=== PATIENT | female | born 1980 | race Caucasian/White ===

== ENCOUNTER 2023-04-21 09:21 | Emergency (ER) | payer MEDICAID, SELFPAY ==
[2023-04-21 09:26] VITALS: BP 119/71; PULSE 65; RESP 16; TEMP 36.6; O2SAT 96; BMI 22.6
--- NOTE | 2023-04-21 09:56 | ED_ITS ---
HPI - General Adult General Chief complaint: Ear/Nose/Throat Problem Stated complaint: Inner ear issue Time Seen by Provider: 04/21/23 09:41 History of Present Illness HPI narrative: 42-year-old female with right ear pain drainage some foul-smelling drainage. She has been having her ears cleaned about 3 weeks ago, has a history of ear problems. She has no severe pain but has been discomfort and itching. She has had ear tubes in the past. Related Data Home Medications Medication Instructions Recorded Confirmed fluoxetine 40 mg capsule 40 mg PO DAILY 03/09/23 04/21/23 Previous Rx's Medication Instructions Recorded ciprofloxacin HCl 0.3 % eye drops See Rx Instructions ophthalmic 03/09/23 (eye) .COMPLEX #10 mL ciprofloxacin 0.3 %-dexamethasone 4 drp Otic (ear-left) Q4H 7 days 04/21/23 0.1 % ear drops,suspension #7.5 mL Allergies Allergy/AdvReac Type Severity Reaction Status Date / Time No Known Drug Allergies Allergy Verified 03/09/23 09:47 Review of Systems Status of ROS: Reports: 6 or more systems reviewed and unremarkable except as noted in History and below [facility] Social History Smoking Status: Unknown if ever smoked Exam Narrative: Exam Narrative: Objective: Patient's vital signs look unremarkable She has got right otitis externa some swelling of the external canal, but no complete occlusion does not need an ear wick is there is plenty a passage space. Does not have appear to have otitis media. Does have some skin changes in her ear canal consistent with otitis externa. Const: Vital Signs, click to edit/add: Vital Signs - 24 hr 04/21/23 09:26 Temperature 97.8 F Pulse Rate [Pulse Oximeter] 65 Respiratory Rate 16 Blood Pressure [Ri t Upper Arm] 119/71 Pulse Oximetry 96 Oxygen Delivery Me thod Room Air Course Vital Signs Vital signs: Initial Vital Signs Temperature 97.8 F 04/21/23 09:26 Temperature Source Temporal Artery Scan 04/21/23 09:26 Pulse Rate 65 04/21/23 09:26 Respiratory Rate 16 04/21/23 09:26 Blood Pressure 119/71 04/21/23 09:26 Blood Pressure Mean 87 04/21/23 09:26 Blood Pressure Position Sitting 04/21/23 09:26 Pulse Oximetry 96 04/21/23 09:26 Oxygen Delivery Method Room Air 04/21/23 09:26 Vital Signs Temperature 97.8 F 04/21/23 09:26 Pulse Rate 65 04/21/23 09:26 Respiratory Rate 16 04/21/23 09:26 Blood Pressure 119/71 04/21/23 09:26 Pulse Oximetry 96 04/21/23 09:26 Oxygen Delivery Method Room Air 04/21/23 09:26 Temperature 97.8 F 04/21/23 09:26 Pulse Rate 65 04/21/23 09:26 Respiratory Rate 16 04/21/23 09:26 Blood Pressure 119/71 04/21/23 09:26 Pulse Oximetry 96 04/21/23 09:26 Oxygen Delivery Method Room Air 04/21/23 09:26 Medical Decision Making MDM Narrative Medical decision making narrative: [age] year white female with right otitis externa. Would recommend Ciprodex drops 6 drops 6 times a day for 2 days then 6 drops t.i.d. until symptom free for 2-3 days. I recommend follow-up with primary care to make sure this is clear in 1 week, would recommend ENT consult with Dr. Amezcua in if needed. Return sooner problems or concerns. Discharge Plan Discharge Clinical Impression: Otitis externa Patient Disposition: Home, Self-Care Condition: Stable Additional Instructions: Ear drops 6 times a day 6 drops to the right ear x2 days, then 3 drops 3 times a day until symptom-free for 2-3 days. Recommend follow-up with primary care at a weeks time to make sure this is clearing, would also recommend follow-up with ENT Dr. Amezcua in if problems or concerns. Activity Level: No Restrictions Discharge Diet: Regular Prescriptions: New ciprofloxacin-dexamethasone 0.3-0.1 % drops,suspension 4 drp Otic (ear-left) Q4H 7 Days Qty: 7.5 0RF Rx Instructions: 6 drops rt ear 6 x day x 2 days, then 6 drops tid until symptom free for 3 days. No Action fluoxetine 40 mg capsule 40 mg PO DAILY ciprofloxacin HCl 0.3 % drops See Rx Instructions ophthalmic (eye) .COMPLEX Qty: 10 0RF Rx Instructions: put 1-2 drps in affected eye(s) every 2hr up to 8 times/day x2days; then 4 times/day x5days ophthalmic (eye) Follow Up/Referrals: Provider,Not a Local [Primary Care Provider] - Stand Alone Forms: Into The Gloss Info Instructions
== END 2023-04-21 10:06 | disposition home or self-care (01) ==
LOC: ED 10:02
PROVIDERS: Emergency Provider Family Medicine
DX: H60.91 Unspecified otitis externa, right ear (principal)
CPT/HCPCS: 99283

== ENCOUNTER 2025-02-21 08:58 | Emergency (ER) | payer BC, SELFPAY ==
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
--- OUTSIDE RECORDS SUMMARY | 2025-02-21 09:01 | XMS_ITS | Clinical Summary ---
Author Organization [facility] Address [address] [place] [id number] Care Team Providers Care Scalping Machine Operator Name Role Phone [facility] Primary Care Provider Unavailabl e Allergies No known active allergies Medications MedicationSigDispense QuantityRefillsLast FilledStart DateEnd DateStatus FLUoxetine (PROZAC) 40 mg capsule 12/05/2017Active vitamin-folic acid 1 mg ( RX) tablet/capsule Take 1 tablet by mouth once daily.Active FLUoxetine (PROZAC) 10 mg capsule Indications: depressionTake 1 tab daily for 4 days, then increase to 2 tabs daily for 4 days, then 3 tabs daily. 60 capsule 09/07/2018Active Active Problems No known active problems Family History Medical HistoryRelationNameCommentsGeneticOther cancer~thyroid~stroke~diabetes-AuntRelationNameStatusCommentsOther Social History Tobacco UseTypesPacks/DayYears UsedDateSmoking Tobacco: NeverSmokeless Tobacco: NeverCommentsNoSex and Gender InformationValueDate RecordedSex Assigned at BirthNot on fileLegal NroOmwjmr72/14/2013 5:26 AM CSTGender IdentityNot on fileSexual OrientationNot on file Last Filed Vital Signs Vital SignReadingTime TakenCommentsBlood Kwtdklra798/7407 11:01 AM CDT Genjc800709/07/2018 11:01 AM TQEHrgxwrlvmgc55 ??C (100.4 ??F)09/07/2018 11:01 AM CDTRespiratory Rate--Oxygen Slotcqynsm10%09/07/2018 11:01 AM CDTInhaled Oxygen Concentration--Weight--Height--Body Mass Index-- Plan of Treatment Health MaintenanceDue DateLast DoneCommentsTetanus qapayoc3308/12/1992Depression screening for age 12+1993HIV for age 15-65008/12/1996BMI (ht and wt on same day) for age 18+08/13/1999Hepatitis C screening for age 18-7908/13/1999Hepatitis B series for 19+ (1 of 3 - 19+ 3-dose series)2000Pap test for age 21-65 2002HPV series for age 9-45 (1 - 3-dose SCDM series)2008COVID-19 vaccine series ( - 2024- season)2024Influenza Vaccine (#1)2024 Pneumococcal series for age 6-49Aged OutNo longer eligible based on patient's age to complete this topic Insurance * Guarantor: Joyce Campa TypeRelation to PatientDate of PhoneBilling AddressPersonal/OxlmpsVnms82/18/1981 [address] [place] [address] Care Teams Team MemberRelationshipSpecialtyStart DateEnd Date [facility] PCP - Damieeq74/30/06
[2025-02-21 09:24] VITALS: BP 139/84; PULSE 85; RESP 18; TEMP 37; O2SAT 98; BMI 21.3
--- NOTE | 2025-02-21 09:40 | ED.GENADULT ---
HPI - General Adult General Date Seen: 02/21/25 Chief complaint: Sore Throat Stated complaint: sore throat Time Seen by Provider: 02/21/25 09:40 Source: patient, RN notes reviewed and old records reviewed Mode of arrival: ambulatory Limitations: no limitations History of Present Illness HPI narrative: Joyce is a very pleasant 44-year-old female otherwise healthy who comes to the emergency room for evaluation of possible gonorrhea. Joyce noted the onset of a sore throat on February 18. She was seen on the in urgent care at which time she tested negative for strep. They did not do a viral swab and provider states that flu is quite prevalent and therefore treated her with Tamiflu. Unfortunately, patient has been told by her significant other that he tested positive for gonorrhea. On SaturdayFebruary 16 patient gave her significant other oral sex. On he had the onset of painful urination and was diagnosed with a UTI. Further tests came back today positive for gonorrhea. Is clearly upset by these news. She has no vaginal discharge dysuria. She has been with her significant other for 10 years. She denies unusual rash fever cough chills vomiting. Related Data Previous Rx's ?Medication ?Instructions ?Recorded fluoxetine 40 mg capsule 40 mg PO DAILY #90 caps 04/01/24 oseltamivir 75 mg capsule 75 mg PO BID 5 days #10 caps 02/19/25 Allergies Allergy/AdvReac Type Severity Reaction Status Date / Time No Known Drug Allergies Allergy Verified 02/19/25 10:15 Review of Systems Status of ROS: Reports: 10 or more systems reviewed and unremarkable except as noted in History and below Const: Reports: fatigue; Denies: fever or chills ENMT: Reports: throat pain; Denies: neck pain, throat swelling or nasal congestion Cardio: Denies: chest pain or shortness of breath with exertion Resp: Denies: shortness of breath or cough GI: Denies: abdominal pain, vomiting or diarrhea : Denies: painful urination, urinary frequency, urinary urgency, blood in urine, pelvic pain or vaginal discharge Musculo: Denies: back pain or neck pain Integ/Breast: Denies: rash Endo: Reports: fatigue Allergy/Immuno: Denies: throat swelling PFSH PFSH Medical History Generalized anxiety disorder ?F41.1 - Generalized anxiety disorder (ICD-10) Surgical History H/O wisdom tooth extraction ?K08.409 - Partial loss of teeth, unspecified cause, unspecified class (ICD-10) History of orthopedic surgery ?Z98.890 - Other specified postprocedural states (ICD-10) Family History Father Thyroid disease Social History Narrative: 2 children, ages 12 and 5 What is your current living situation?: I presently have a place to live Problems where you live: no known problems In the past 12 months, utilities in danger of being shut off: no In past 12 months, lack of transportation kept you from medical appts, meetings, work, or getting things needed for daily living: no In the past 12 mos, have been you worried that your food would run out before you had money to buy more?: never true In the past 12 mos, the food you bought just didn't last and you didn't have money to buy more?: never true Physical activity type: walking and other 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 Smoking Status: Never smoker Do you use any of these nicotine containing products: None How often do you have a drink containing alcohol: never AUDIT-C Alcohol total score: 0 Non-prescribed substance use: denies use Caffeine: Yes Are you now , , , , never or living with a partner: living with partner Social isolation score (0-1 are the most socially isolated patients): 1 How often does anyone, including family, friends and others, physically hurt you: never How often does anyone, including family, friends and others, insult or talk down to you: never How often does anyone, including family, friends and others, threaten you with harm: never How often does anyone, including family, friends and others, scream or curse at you: never Exam Narrative: Exam Narrative: Alert and oriented. Tearful. External ears eyes nose clear. Oral cavity shows erythema in the posterior oropharynx without exudate. Does have some lymphadenopathy bilaterally right greater than left. No trismus is noted. No evidence of respiratory distress or airway compromise. Heart with regular rate and rhythm and lungs are clear. No unusual rashes noted. Moving all extremities. Const: Vital Signs, click to edit/add: Vital Signs - 24 hr 02/21/25 09:24 Temperature 98.6 F Pulse Rate [Pulse Oximeter] 85 Respiratory Rate 18 Blood Pressure [Ri ght Upper Arm] 139/84 Pulse Oximetry 98 Oxygen Delivery Me thod Room Air Documenting provider has reviewed patient's vital signs: yes Course Course ED Course: We did collect a throat culture as well as urine is GC and chlamydia. However, given positive exposure I do suggest treatment with Rocephin 500 mg IM. I would also suggest treatment for chlamydia and testing of HIV, syphilis, acute hepatitis panel, CBC, comprehensive. Patient is in agreement with our plan. Vital Signs Vital signs: Initial Vital Signs Temperature 98.6 F 02/21/25 09:24 Temperature Source Temporal Artery Scan 02/21/25 09:24 Pulse Rate 85 02/21/25 09:24 Respiratory Rate 18 02/21/25 09:24 Blood Pressure 139/84 02/21/25 09:24 Blood Pressure Mean 102 02/21/25 09:24 Blood Pressure Position Sitting 02/21/25 09:24 Pulse Oximetry 98 02/21/25 09:24 Oxygen Delivery Method Room Air 02/21/25 09:24 Vital Signs Temperature 98.6 F 02/21/25 09:24 Pulse Rate 85 02/21/25 09:24 Respiratory Rate 18 02/21/25 09:24 Blood Pressure 139/84 02/21/25 09:24 Pulse Oximetry 98 02/21/25 09:24 Oxygen Delivery Method Room Air 02/21/25 09:24 Temperature 98.6 F 02/21/25 09:24 Pulse Rate 85 02/21/25 09:24 Respiratory Rate 18 02/21/25 09:24 Blood Pressure 139/84 02/21/25 09:24 Pulse Oximetry 98 02/21/25 09:24 Oxygen Delivery Method Room Air 02/21/25 09:24 Medications Administered Medications: Generic Name Dose Route Start Last Admin Trade Name Freq PRN Reason Stop Dose Admin Lidocaine HCl 1 ml 02/21/25 09:52 02/21/25 11:15 Lidocaine 1% 5 Ml (Pf) 5 Ml Vial IM 1 ml DIRECTED PRN Administration Pain Discontinued Medications Generic Name Dose Route Start Last Admin Trade Name Any PRN Reason Stop Dose Admin Ceftriaxone Sodium 500 mg 02/21/25 09:52 02/21/25 11:15 Ceftriaxone 500 Mg Vial IM 02/21/25 09:53 500 mg ONCE ONE Administration Medical Decision Making MDM Narrative Medical decision making narrative: 1. Pharyngitis-patient has tested negative for strep, influenza/COVID/RSV. Highly likely that pharyngitis secondary to gonorrhea given exposure on 02/16/2025. Patient has tested negative for influenza. Therefore will have her discontinue Tamiflu at this time. 2. Gonorrhea exposure-will treat with Rocephin 500 mg IM. Will also continue antibiotic treatment for the possibility of chlamydia doxycycline 100 mg p.o. b.i.d. x7 days. This was put in our [employer] machine. Usual follow-up tests in 3 months is still valid but given the oral gonorrhea suggestion is test to ensure treatment success in 7-10 days. Patient will need follow-up in our clinic during that time. 3. Disposition-HIV, acute hepatitis panel, syphilis currently pending. Return to the ER for worsening symptoms and as needed. Complete abstinence until both parties are testing negative is suggested. Patient agrees to follow-up in the clinic in the next 7 today in days for recheck. Medical Records Medical records reviewed: Yes I reviewed the patient's medical records Medical records narrative: ED records as well as March 2024 H and P reviewed Lab Data Lab results reviewed: Yes I reviewed the patient's lab results Labs: Lab Results 02/21/25 02/21/25 02/21/25 Range/Units 09:52 10:10 10:25 WBC 6.81 (4.50-11.00) K/uL RBC 3.99 L (4.00-5.20) m/uL Hgb 11.5 L (12.0-16.0) gm/dL Hct 37.1 (33.0-51.0) % MCV 93 (80-100) fL MCH 29 (26-34) pg MCHC 31 L (32-36) gm/dL RDW Coeff of Jane 13.3 (11.5-15.5) % Plt Count 225 (140-440) K/uL Neut % (Auto) 70.7 (42.0-72.0) % Lymph % (Auto) 19.4 L (20-44) % [place] % (Auto) 7.3 (0.0-11.0) % Eos % (Auto) 1.8 (0.0-7.0) % Baso % (Auto) 0.4 (0.0-3.0) % Neut # (Auto) 4.81 (1.7-7.0) K/uL Lymph # (Auto) 1.30 (0.90-2.90) K/uL [place] # (Auto) 0.50 (0.00-0.90) K/UL Eos # (Auto) 0.12 (0.00-0.50) K/uL Baso # (Auto) 0.03 (0.00-0.30) K/uL Abs Immat Gran (auto) 0.03 (0.00-0.30) K/uL Imm/Tot Granulo (auto) 0.4 % Sodium 138 (135-149) mmol/L Potassium 4.4 (3.6-5.1) mmol/L Chloride 102 (96-114) mmol/L Carbon Dioxide 29 (20-32) mmol/L Anion Gap 7 (7-15) mEq/L BUN 11 (5-24) mg/dL Creatinine 0.6 (0.5-1.5) mg/dL Estimated Creat Clear 117.57 Estimated GFR 114 ml/min Glucose 82 (60-115) mg/dL Calcium 9.3 (8.4-10.6) mg/dL Total Bilirubin 0.4 (0.1-1.5) mg/dL AST 22 (12-35) U/L ALT 17 (4-35) U/L Alkaline Phosphatase 62 (40-150) U/L Total Protein 7.2 (6.0-8.3) g/dL Albumin 4.3 (3.3-5.0) g/dL Urine Color Yellow (Yellow) Urine Appearance Clear (Clear) Urine pH 8.5 (5.0-8.5) Ur Specific [place] 1.020 (1.000-1.030) Urine Protein Negative (Negative) Urine Glucose (UA) Negative (Negative) Urine Ketones Negative (Negative) Urine Blood Negative (Negative) Urine Nitrite Negative (Negative) Urine Bilirubin Negative (Negative) Urine Urobilinogen 1.0 (0.2-1.0) Ur Leukocyte Esterase Negative (Negative) Urine RBC 0-2 (0-2) Urine WBC 0-2 (0-5) Ur Squamous Epith Cells Few (None-Few) Urine Bacteria None (None) SARS-CoV-2 (PCR) Negative SARS-CoV-2 (Negative) Monoscreen Negative (Negative) Influenza Type A (PCR) Negative PCR FLU A (Negative) Influenza Type B (PCR) Negative PCR FLU B (Negative) RSV (PCR) Negative PCR RSV (Negative) Discharge Plan Discharge Clinical Impression: Exposure to gonorrhea Pharyngitis Qualifiers: Pharyngitis/tonsillitis etiology: unspecified etiology Qualified Code(s): J02.9 - Acute pharyngitis, unspecified Patient Disposition: Home, Self-Care Condition: Unchanged Instructions: Gonorrhea (ED) Additional Instructions: Today you were treated for presumed gonorrhea with an injection of Rocephin. Because gonorrhea is frequently associated with chlamydia I have prescribed antibiotic called doxycycline to be taken twice a day for 7 days. Oropharyngeal infection: ?We perform test of cure at the oropharynx, regardless of symptom resolution, at 7 to 14 days posttreatment to ensure eradication.-please follow-up with a regular physician for recheck. ?We also retest after three months to evaluate for reinfection. Return for worsening symptoms and as needed. You have tested negative for COVID/influenza/RSV. You may discontinue Tamiflu at this time. Prescriptions: No Action fluoxetine 40 mg capsule 40 mg PO DAILY Qty: 90 3RF oseltamivir 75 mg capsule 75 mg PO BID 5 Days Qty: 10 0RF Follow Up/Referrals: Provider,Not a Local [Primary Care Provider, Family Practice] Stand Alone Forms: [place] Info Instructions
[2025-02-21 10:19] LABS: Hematocrit* 37.1 % (33.0-51.0); Hemoglobin* 11.5 gm/dL (12.0-16.0); Immature Granulocytes Abs Auto 0.03 K/uL (0.00-0.30); Immature Granulocytes Pct Auto 0.4 %; Mean Corpuscular HGB Conc 31 gm/dL (32-36); Mean Corpuscular Hemoglobin 29 pg (26-34); Mean Corpuscular Volume 93 fL (80-100); RDW Coefficient of Variation % 13.3 % (11.5-15.5); Red Blood Count* 3.99 m/uL (4.00-5.20); White Blood Count* 6.81 K/uL (4.50-11.00)
[2025-02-21 10:30] LABS: Chloride* 102 mmol/L (96-114); Lymphocytes Absolute Auto 1.30 K/uL (0.90-2.90); Slide Review Reflex No
[2025-02-21 10:31] LABS: Albumin* 4.3 g/dL (3.3-5.0); Potassium* 4.4 mmol/L (3.6-5.1); Sodium* 138 mmol/L (135-149)
[2025-02-21 10:34] LABS: Alanine Aminotransferase* 17 U/L (4-35); Alkaline Phosphatase* 62 U/L (40-150); Anion Gap 7 mEq/L (7-15); Aspartate Amino Transferase* 22 U/L (12-35); Bilirubin Total* 0.4 mg/dL (0.1-1.5); Blood Urea Nitrogen* 11 mg/dL (5-24); Calcium* 9.3 mg/dL (8.4-10.6); Carbon Dioxide* 29 mmol/L (20-32); Creatinine* 0.6 mg/dL (0.5-1.5); Est. Creatinine Clearance* 117.57; Estimated Glomerular Filt Rate 114 ml/min; Glucose* 82 mg/dL (60-115); Total Protein* 7.2 g/dL (6.0-8.3)
[2025-02-21 10:37] LABS: Appearance Urine Clear (Clear)
[2025-02-21 10:40] LABS: Mono Screen* Negative (Negative)
[2025-02-21 11:10] LABS: PCR FLU A Negative PCR FLU A (Negative); PCR FLU B Negative PCR FLU B (Negative); PCR RSV Negative PCR RSV (Negative); SARS PCR* Negative SARS-CoV-2 (Negative)
[2025-02-21 11:13] LABS: Chlamydia DNA Amplified* NOT DETECTED (No Detected)
[2025-02-21] MEDS: cefTRIAXone 500 MG VIAL IM (11:15)
[2025-02-21] MEDS: LIDOCAINE 1% 5 ml (pf) 5 ML VIAL 1 ML IM (11:15)
[2025-02-21 11:21] LABS: GC DNA Amplified* DETECTED (No Detected)
[2025-02-21 12:03] LABS: Chlamydia DNA Amplified* NOT DETECTED (No Detected); GC DNA Amplified* NOT DETECTED (No Detected)
[2025-02-21 12:44] LABS: HIV 1/2/P24 Combo Screen* Negative (Negative)
[2025-02-23 18:16] LABS: Hep B Surface Antigen Negative (Negative); Hep C Ab by CIA Interp Negative (Negative)
== END 2025-02-21 11:32 | disposition home or self-care (01) ==
PROVIDERS: Emergency Provider Family Medicine
DX: J02.9 Acute pharyngitis, unspecified (principal); Z20.2 Contact with and (suspected) exposure to infections with a predominantly sexual mode of transmission
CPT/HCPCS: 36415; 80053; 80074; 81001; 85025; 86308; 86703; 86780; 87491; 87591; 87631; 96372; 99284; J0696